=== PATIENT | male | born 1985 | race Caucasian/White ===

== ENCOUNTER 2016-12-23 20:00 | Emergency (ER) | payer BC ==
[~2016-12-23] VITALS: Ht 180.3 cm; Wt 142.0 kg
[2016-12-23 20:05] VITALS: BP 158/106
[2016-12-23] MEDS ORDERED: AMOXICILLIN500 M1 PO (20:16)
== END 2016-12-23 20:37 | disposition home or self-care (01) ==
LOC: EME 20:00
DX: K02.9 Dental caries, unspecified (principal); R03.0 Elevated blood-pressure reading, without diagnosis of hypertension
CPT/HCPCS: 99281; 99284

== ENCOUNTER 2018-01-12 21:36 | Emergency (ER) | payer OTHER ==
[~2018-01-12] VITALS: Ht 180.3 cm; Wt 139.7 kg
[~2018-01-12 21:36] MED LIST: AMOXICILLIN500 M1 PO
[2018-01-12 23:22] VITALS: BP 136/80
== END 2018-01-12 23:22 | disposition home or self-care (01) ==
LOC: EME 21:36
DX: F32.9 Major depressive disorder, single episode, unspecified (principal); F19.10 Other psychoactive substance abuse, uncomplicated; F11.20 Opioid dependence, uncomplicated; F90.9 Attention-deficit hyperactivity disorder, unspecified type
CPT/HCPCS: 90839; 99281; 99283